=== PATIENT | female | born 1950 | race Caucasian/White ===

== ENCOUNTER 2016-10-05 05:34 | Observation (INO) | payer MEDICARE, OTHER ==
--- NOTE | ~2016-10-05 | DS ---
Discharge Summary [facility] [address] [place]. [address] NAME: PRISCILLA PERAZA : 48 STATUS : DIS Jony PAT#: [id number] AGE: 66 ADM/REG DATE : 10/05/16 MR#: [id number] REPORT SERV DATE: 10/07/16 DICTATED BY: KYLE CARO DATE: 10/06/16 REPORT STATUS : Draft TRANSCRIBED BY: MODL DATE: 10/06/16 ADMISSION DATE: 10/05/2016 DISCHARGE DATE: 10/06/2016 DISCHARGE DIAGNOSES: 1. Chest pain. 2. Syncope. 3. Right category 2 carotid stenosis. 4. History of chronic obstructive pulmonary disease and tobacco use. 5. Hypertension. 6. Sinus tachycardia. 7. Some urinary frequency with a history of hematuria although UA was within normal limits. 8. Questionable obstructive sleep apnea. 9. History of lupus. 10.Diaphoresis. DISCHARGE MEDICATIONS: Aspirin 81 mg daily; metoprolol 12.5 mg p.o. twice a day; nicotine patch 14 mg topically patch daily; Macrodantin 50 mg daily; Singulair 10 mg daily; Plaquenil and pravastatin 20 mg p.o. daily. HISTORY OF PRESENT ILLNESS: This is a very pleasant, 66-year-old, white female who presented to [facility] with complaints of chest pain and syncope. She had been found down in the bathroom by her ex-. Please see the initial H and P of Dr. Herberth Graves. This patient was admitted to the Hospitalist Service for further evaluation and treatment. PROCEDURES AND IMAGING DURING THIS ADMISSION: Myocardial perfusion imaging stress test that was overall low risk. She had an echocardiogram showing an ejection fraction of 55% and no valvular problems. She had a carotid ultrasound showing category 2 right carotid stenosis, approximately 70%. HOSPITAL COURSE: I began seeing the patient in the morning of 10/05/2016, and on exam, the patient had a significant right carotid bruit when auscultating with the stethoscope. She was not having any more significant chest pain, did not have any more episodes of syncope or diaphoresis but was quite hypertensive. The above described imaging and procedures were performed. She was started on low-dose beta-sindi therapy which she has tolerated well. She described symptoms of urinary frequency at home and also symptoms of snoring and waking up gasping for breath. We checked the urinalysis that was within normal limits and I have also counseled and instructed her to follow up with her primary care for further evaluation and sleep study as she could have obstructive sleep apnea. She also related that she had recently been diagnosed with lupus and had been prescribed Plaquenil, but had not started that yet. So given the findings of the carotid stenosis, we will set an appointment up with vascular surgeon, Dr. Jaret Hyde as an outpatient. I have instructed to follow up with her primary care in the next 7 to 10 days to discuss her medications this hospital admission and to check her lipids. I have instructed her to stop smoking, extensive counseling on Discharge Summary [address] [place]. [address] NAME: PRISCILLA PERAZA : 48 STATUS : DIS Jony PAT#: [id number] AGE: 66 ADM/REG DATE : 10/05/16 MR#: [id number] REPORT SERV DATE: 10/07/16 DICTATED BY: KYLE CARO DATE: 10/06/16 REPORT STATUS : Draft TRANSCRIBED BY: LEON DATE: 10/06/16 this, and also PCP can refer for a sleep study. All questions were answered at bedside with both the patient and her ex-. She is in agreement with this plan going forward, and greater than 30 minutes spent on this discharge for medication teaching, followup planning, and further disposition. LISA/LEON Kyle Caro NP / [id number] CC: Marisa Canada M.D.
--- NOTE | ~2016-10-05 | HP ---
History And Physical [place] [id number] [facility] [place]. [address] NAME: PRISCILLA PERAZA : 48 STATUS : ADM Jony PAT#: [id number] AGE: 66 ADM/REG DATE : 10/05/16 MR#: [id number] REPORT SERV DATE: 10/05/16 DICTATED BY: RENITA STRONG DATE: 10/05/16 REPORT STATUS : Draft TRANSCRIBED BY: MODL DATE: 10/05/16 DATE OF ADMISSION: 10/05/2016 CHIEF COMPLAINT: A 66-year-old female presenting with chest pain and syncope. HISTORY OF PRESENT ILLNESS: The patient's history was obtained through careful interview with patient, son, and ex-, coupled with review of [facility] medical records. The patient states that for about a week she has been having hot sweats, diaphoresis, and subjective fevers and chills. She constantly wants to check her temperature, but has never measured an actual fever. She has also developed some new onset chest discomfort recently, it comes in severe paroxysms that will last just a minute or two. She describes it across the middle of her chest without radiation, a sharp quality, 9 to 10/10 severity that "scares me" as she describes it. The patient denies any shortness of breath at all. There has been no cough. She has had some slight lightheadedness and this evening she got up to use the bathroom in the middle of the night, and suddenly felt very lightheaded and passed out while in the bathroom. Her ex- came to check on her when he heard her collapse and for about two minutes she was completely unresponsive. He was able to lift her up and take her to the bed and then call the ambulance to come and bring her to the hospital. Tonight once again she was "wringing wet" with sweat when this episode occurred. No abdominal pain. She has had nausea, but no vomiting. No diarrhea. She describes arthritis pains most severely in her feet, but affect almost every joint of her body she describes it. Her hands have also been stiff and red at times as well. REVIEW OF SYSTEMS: Otherwise, 14-point review of systems was obtained and was negative. PAST MEDICAL HISTORY: 1. Cervical cancer. 2. Irritable bowel syndrome. 3. Peptic ulcer disease seen by Dr. Lorelei Gutierrez. 4. Chronic headaches. 5. Urinary tract infection. 6. Childhood asthma. 7. No cardiac disease. 8. Positive ANALY 1:160 titer centromere pattern in March 2016, on Plaquenil, but has been noncompliant with this medication. History And Physical [address] [place]. [address] NAME: PRISCILLA PERAZA : 48 STATUS : ADM Jony PAT#: [id number] AGE: 66 ADM/REG DATE : 10/05/16 MR#: [id number] REPORT SERV DATE: 10/05/16 DICTATED BY: RENITA STRONG DATE: 10/05/16 REPORT STATUS : Draft TRANSCRIBED BY: LEON DATE: 10/05/16 PAST SURGICAL HISTORY: Hysterectomy and bladder surgery x2. ALLERGIES: PENICILLIN. SOCIAL HISTORY: The patient is a smoker. Drinks alcohol. Lives in [place], [place]. Lives with her ex-, has one son and has grandchildren. FAMILY HISTORY: Brother and father with coronary artery disease. A strong family history of cancer. CURRENT MEDICATIONS: 1. Singulair 10 mg p.o. daily. 2. Macrodantin 50 mg p.o. daily. PHYSICAL EXAMINATION: VITAL SIGNS: Temperature 97.9, pulse 107, blood pressure 174/66, respiratory rate 16, and O2 saturation 98% on room air. GENERAL: A pleasant, cooperative female, in no evidence of acute distress. HEENT: Pupils equal, round, and reactive to light. No conjunctival pallor. No scleral icterus. Nares are patent. Oropharynx is clear of obstruction. Moist mucous membranes. NECK: Trachea midline. No thyromegaly. LYMPH: No cervical lymphadenopathy. No supraclavicular lymphadenopathy. RESPIRATORY: Clear to auscultation at bases. No wheezes, rales, or rhonchi. Normal respiratory effort. CARDIOVASCULAR: Tachycardic. Regular rhythm. No murmurs, rubs, or gallops. No extremity edema is appreciated. ABDOMEN: Soft, nontender, and nondistended. Normal bowel sounds auscultated throughout. No hepatosplenomegaly. DERMATOLOGICAL: Warm and dry extremities. No pallor. No cyanosis. PSYCHIATRIC: An anxious affect and mood. Alert and oriented x3. LABORATORY DATA: White blood cell count 8.9, hemoglobin 13, hematocrit 38, and platelets 259. Sodium 134, potassium 3.7, chloride 97, bicarb 29, BUN 12, creatinine 0.8, and glucose 103. Troponin negative. INR 0.9. STUDIES: 1. Chest x-ray by my own evaluation shows no acute cardiopulmonary process. 2. EKG by my own evaluation shows sinus rhythm, no major abnormalities. ASSESSMENT AND PLAN: 1. Chest pain. Start on aspirin. Check a nuclear cardiac stress test. Check an echocardiogram. Check telemetry. 2. Syncope, question arrhythmia ? Check telemetry. Check orthostatics. 3. Diaphoresis. Check ESR. Check CRP. Check ANALY titer. History And Physical [address] [address] NAME: PRISCILLA PERAZA : 48 STATUS : ADM Jony PAT#: [id number] AGE: 66 ADM/REG DATE : 10/05/16 MR#: [id number] REPORT SERV DATE: 10/05/16 DICTATED BY: RENITA STRONG DATE: 10/05/16 REPORT STATUS : Draft TRANSCRIBED BY: LEON DATE: 10/05/16 [facility]/LEON Renita Strong M.D. / [id number] CC: Yoni Fulton Jr, MD William Cornwell, M.D.
[2016-10-05 05:00] LABS: BASOPHILS 0.5 %; BASOPHILS ABSOLUTE 0.04 10/3/uL (0.0-0.16); EOSINOPHILS 2.7 %; EOSINOPHILS ABSOLUTE 0.24 10/3/uL (0.0-0.53); HEMATOCRIT 37.6 % (36.0-48.0); HEMOGLOBIN 13.3 g/dL (12.0-16.0); IMMATURE GRANULOCYTES 0.3 %; IMMATURE GRANULOCYTES ABSOLUTE 0.03 10/3/uL (0.0-0.11); LYMPHOCYTES 26.4 %; LYMPHOCYTES ABSOLUTE 2.34 10/3/uL (0.67-4.30); MEAN CORPUS HGB CONC 35.4 g/dL (32.0-36.0); MEAN CORPUSCULAR HEMOGLOB 31.4 pg (26.0-34.0); MEAN CORPUSCULAR VOLUME 88.7 fL (80-100); MEAN PLATELET VOLUME 9.9 fL (9.2-13.0); MONOCYTES 6.9 %; MONOCYTES ABSOLUTE 0.61 10/3/uL (0.21-1.20); NEUTROPHILS 63.2 %; NEUTROPHILS ABSOLUTE 5.59 10/3/uL (2.02-8.40); PLATELET COUNT 259 10/3/uL (150-400); RBC DISTRIBUTION WIDTH 14.1 % (12.0-16.0); RED CELL COUNT 4.24 10/6/uL (4.0-5.6); WHITE BLOOD CELLS 8.9 10/3/uL (4.5-10.5)
[2016-10-05 05:04] LABS: ER CBC TAT 0 Hrs 05 MinsNP; MANUAL DIFF NO %
[2016-10-05 05:17] LABS: BUN (BLOOD UREA NITROGEN) 12 MG/DL (6-23); CALCIUM, SERUM 8.9 MG/DL (8.5-10.4); CHEST PAIN PROFILE TAT 0 Hrs 22 Mins; CHLORIDE, SERUM 97 MMOL/L (96-112); CO2 (CARBON DIOXIDE) 29 MMOL/L (24-34); GFR AFRICAN AMERICAN 88 ML/MIN (>=60); GFR NON AFRICAN AMERICAN 76 ML/MIN (>=60); SODIUM, SERUM 134 MMOL/L (135-148); TROPONIN I <0.02 NG/ML (<0.05)
[2016-10-05 05:23] LABS: GLUCOSE, SERUM 103 MG/DL (60-99); POTASSIUM, SERUM 3.7 MMOL/L (3.5-5.3)
[2016-10-05 05:27] LABS: INTERNATIONAL NORMAL RATI 0.9 UNITS (-); PROTIME (NOT ORD) 12.5 SEC (12.0-14.5)
[2016-10-05 05:31] LABS: PARTIAL THROMBO TIME 21.3 SEC (22.5-37.2)
[~2016-10-05 05:34] MED LIST: NEXIUM40 PO
[2016-10-05] MEDS ORDERED: MACRO50B PO (05:48)
[2016-10-05] MEDS ORDERED: SINGULAIR1 PO (05:49)
[2016-10-05 09:09] LABS: TROPONIN I <0.02 NG/ML (<0.05)
[2016-10-05 09:10] LABS: C-REACTIVE PROTEIN 8.7 MG/L (<8.0)
[2016-10-05 15:54] LABS: WBC (NOT ORDERED) (RFLEX) 0 (0-5)
[2016-10-05 16:36] LABS: ASCORBIC ACID (UR NOT ORDER) NEG (NEG); BILIRUBIN, URINE NEGATIVE (NEG); KETONE, URINE NEGATIVE (NEG); LEUKOCYTE ESTERASE(NOT OR NEG (NEG)
[2016-10-06 08:24] LABS: BUN (BLOOD UREA NITROGEN) 10 MG/DL (6-23); CALCIUM, SERUM 9.3 MG/DL (8.5-10.4); CHLORIDE, SERUM 99 MMOL/L (96-112); CO2 (CARBON DIOXIDE) 28 MMOL/L (24-34); GFR AFRICAN AMERICAN 104 ML/MIN (>=60); GFR NON AFRICAN AMERICAN 90 ML/MIN (>=60); GLUCOSE, SERUM 89 MG/DL (60-99); POTASSIUM, SERUM 4.3 MMOL/L (3.5-5.3); SODIUM, SERUM 134 MMOL/L (135-148)
[2016-10-06] MEDS ORDERED: ASAB PO (15:36)
[2016-10-06] MEDS ORDERED: LOP25 PO (15:36)
[2016-10-06] MEDS ORDERED: HABIT14 (15:37)
[2016-10-06] MEDS ORDERED: PRAVAC PO (15:39)
[2016-10-06] MEDS ORDERED: PLAQ200B (15:40)
[2016-10-06] MEDS ORDERED: [UNRECOGNIZED DRUG - OTHER] (15:41)
[2016-10-07 10:30] LABS: ANA PATTERN CENTROMERE
[2017-01-03] MEDS ORDERED: LIPITOR40 PO (08:58)
[2017-01-03] MEDS ORDERED: ACET500CAP PO (08:58)
[2017-01-03] MEDS ORDERED: CHANTIX0.5 PO (08:58)
[2017-01-03] MEDS ORDERED: LOP25 PO (09:53)
[2017-01-31] MEDS ORDERED: ATRONASAL3 NAS (10:07)
[2017-01-31] MEDS ORDERED: ATV.5 PO (10:39)
[2017-02-05] MEDS ORDERED: LOP25 PO (13:37)
[2017-02-05] MEDS ORDERED: PRIN5 PO (13:38)
[2017-02-05] MEDS ORDERED: V5 PO (13:40)
[2017-02-05] MEDS ORDERED: OXYCOD PO (13:40)
[2017-02-05] MEDS ORDERED: ZOFRAN ODT4 MG PO (13:42)
== END 2016-10-06 16:08 | disposition home or self-care (01) ==
LOC: ER 05:34 → CDU1 05:55 → CDU2 06:22
PROVIDERS: Internal Medicine; Specialist
DX: R07.9 Chest pain, unspecified (principal); R55 Syncope and collapse; I65.21 Occlusion and stenosis of right carotid artery; I10 Essential (primary) hypertension; R00.0 Tachycardia, unspecified; J44.9 Chronic obstructive pulmonary disease, unspecified; F17.210 Nicotine dependence, cigarettes, uncomplicated; R61 Generalized hyperhidrosis; Z79.899 Other long term (current) drug therapy; Z90.710 Acquired absence of both cervix and uterus; Z98.890 Other specified postprocedural states; N39.0 Urinary tract infection, site not specified; Z88.0 Allergy status to penicillin
CPT/HCPCS: 71010; 78452; 80048; 81001; 83036; 83735; 84443; 84484; 85025; 85610; 85652; 85730; 86039; 86140; 93005; 93017; 93880; 96372; 99285; A9270-GY; A9502; C8929; G0378; J2785; Q9957